=== PATIENT | male | born 1975 | race Caucasian/White ===

== ENCOUNTER 2017-01-17 09:31 | Emergency (ER) | payer BC ==
[2017-01-17] MEDS ORDERED: Dexamethasone IV* 4 MG/ML 5 ML VIAL (20 MG) IVPB ONE (10:28)
[2017-01-17] MEDS ORDERED: Ketorolac INJ* 30 MG/ML 1 ML VIAL IV PUSH ONE (10:28)
[2017-01-17] MEDS ORDERED: Orphenadrine Citrate IV* 30 MG/ML 2 ML VIAL IV ONE (10:28)
[2017-01-17 12:33] VITALS: BP 134/80
--- NOTE | 2017-01-17 18:57 | ED ---
Edinson Tejada Rebecca, scribed for Gomez García MD on 01/17/17 at 1030 . Lower Extremity - HPI Summary HPI Summary: Pt is a 41 y/o M who presents to ED c/o R lumbar back pain. Sx began approximately 1.5 weeks ago after he was sitting on the floor and tried standing up. Pain has been constant since onset. When pain began initially, it radiated down the entire RLE, worse in the R hip. Additionally states that at onset of pain, his RLE was numb. Currently, numbness is resolved and his only complaint if the R lumbar back pain. Sx aggravated by massage, alleviated by nothing. Denies N/V, incontinence. PMHx sciatica back pain with 2 surgeries. Was evaluated by Dr. Mccurdy 3 days ago who suspects a bulging or slipped disc and scheduled an MRI for tomorrow. - History of Current Complaint Chief Complaint: EDBackInjuryPain Stated Complaint: BACK PAIN Time Seen by Provider: 01/17/17 10:18 Hx Obtained From: Patient Onset of Pain: Prior to Arrival Onset/Duration: Weeks - 1.5 weeks Severity Initially: Severe Severity Currently: Mild Pain Intensity: 2 Pain Scale Used: 0-10 Numeric Location: Radiates To - R lumbar back with radiation down the RLE Associated Signs And Symptoms: Positive: Other - RLE numbness - resolved Aggravating Factor(s): Other - Massage Alleviating Factor(s): Nothing - Allergies/Home Medications Allergies/Adverse Reactions: Allergies Allergy/AdvReac Type Severity Reaction Status Date / Time No Known Allergies Allergy Verified 01/16/17 11:39 PMH/Surg Hx/FS Hx/Imm Hx Endocrine/Hematology History: Denies: Hx Diabetes, Hx Thyroid Disease Cardiovascular History: Reports: Hx Hypertension Denies: Hx Pacemaker/ICD Respiratory History: Denies: Hx Asthma, Hx Chronic Obstructive Pulmonary Disease (COPD) GI History: Denies: Hx Ulcer History: Denies: Hx Renal Disease Musculoskeletal History: Reports: Hx Back Problems - Sciatica Sensory History: Denies: Hx Hearing Aid Psychiatric History: Denies: Hx Panic Disorder - Surgical History Surgery Procedure, Year, and Place: lumbar spine L5-S1 2009 AND 2013, foot- Rt( TENDON TEAR FROM STEPPING ON GLASS) 2005,appy 1988 Infectious Disease History: No Infectious Disease History: Denies: Hx Clostridium Difficile, Hx Hepatitis, Hx Human Immunodeficiency Virus (HIV), Hx of Known/Suspected MRSA, Hx Shingles, Hx Tuberculosis, Traveled Outside the [place] in Last 30 Days - Family History Known Family History: Positive: Hypertension - Social History Alcohol Use: Occasionally Substance Use Type: Reports: None Smoking Status (MU): Never Smoked Tobacco Review of Systems Negative: Vomiting, Nausea Negative: incontinence Positive: Arthralgia - R lumbar back pain with radiaiton down the RLE Positive: Numbness - RLE numbness - resolved All Other Systems Reviewed And Are Negative: Yes Physical Exam - Summary Physical Exam Summary: General: Patient is a well developed and nourished male without any distress that is laying comfortably in the stretcher. Skin: [place], warm, dry HEAD AND FACE: No signs of trauma. EYES: PERRLA, EOMI x 2. EARS: Hearing grossly intact. MOUTH: Oropharynx within normal limits. NECK: Supple, trachea is midline, no adenopathy, no JVD. CHEST: Symmetric, no tenderness at palpation LUNGS: CTA bilaterally, no rales, rhonchi or wheezing CVS: RRR, no murmur, rub, or gallop ABDOMEN: soft and Nontender without masses, no guarding or rebound. Bowel sounds are active. No Hepato-splenomegaly. No signs of inguinal hernias. BACK: Patient walked into the ED room with symmetric ambulation, No signs of limping, antalgic, able to bear weight. No signs of trauma, no soft tissue or muscle tenderness, positive spasm in the Paraspinal muscles of the lumbar spine. No masses palpated. Point tenderness at the vertebral spine, No CVAT, no flank ecchymosis . No sacroiliac notch tenderness, No saddle anesthesia ROM: flexion/ extension/ lateral bending and rotation, note if limited due to pain Straight Leg Raise: Negative Patellar reflexes: brisk, symmetric Muscle strength lower extremities. Dorsiflexion/ plantar flexion of ankles normal. Lower extremities: Femoral, popliteal, posterior tibial, and pedal pulses with in normal, Rectal: Patient refused the exam. Triage Information Reviewed: Yes Vital Signs On Initial Exam: Initial Vitals Temp Pulse Resp BP Pulse Ox 98.0 F 57 16 145/83 96 01/17/17 09:32 01/17/17 09:32 01/17/17 09:32 01/17/17 09:32 01/17/17 09:32 Vital Signs Reviewed: Yes Diagnostics - Vital Signs Vital Signs Temp Pulse Resp BP Pulse Ox 01/17/17 09:32 98.0 F 57 16 145/83 96 - Laboratory Lab Statement: Any lab studies that have been ordered have been reviewed, and results considered in the medical decision making process. Re-Evaluation - Re-Evaluation First Eval Re-Evaluation Time: 12:20 Change: Improved Comment: Offered pt a rectal examination which he declined. Pt is feeling significantly improved. Lower Extremity Course/Dx - Course Assessment/Plan: Pt is a 41 y/o M who presents to ED c/o R lumbar back pain. Sx began approximately 1.5 weeks ago after he was sitting on the floor and tried standing up. Pain has been constant since onset. When pain began initially, it radiated down the entire RLE, worse in the R hip. Additionally states that at onset of pain, his RLE was numb. Currently, numbness is resolved and his only complaint if the R lumbar back pain. Sx aggravated by massage, alleviated by nothing. Denies N/V, incontinence. PMHx sciatica back pain with 2 surgeries. Was evaluated by Dr. Mccurdy 3 days ago who suspects a bulging or slipped disc and scheduled an MRI for tomorrow. In the ED course, the pt was given Decadron , Toradol and Norflex and his sx significantly improved. This pt is scheduled to have an MRI of the L spine, ordered by Dr. Mccurdy. I attempted to contact Dr. Mccurdy, but he is not available. The pts pain decreased significantly. The pt is able to ambulate on his own, he does not have any urinary or fecal dysfunction and the pain is only 2/10. The pt does not have a drop foot or any neurological dysfunction, therefore the pt prefers to be D/C to home and he will be D/C to home to f/u with Dr. Mccurdy tomorrow. Pt was instructed to return to ED if he develops any weakness, numbness, increase in pain or urinary or fecal dysfunction. He understands and agrees. Pt is hemodynamically stable and A&Ox3. I discussed all the findings and test results with the patient. Patient was instructed to return to the emergency room immediately if any of the symptoms return or worsens. Plan of care was discussed with the patient and understands and agrees. All questions were answered at patient satisfaction. There were no further complaints or concerns. - Diagnoses Differential Diagnosis/HQI/PQRI: Positive: Bursitis, Contusion, Dislocation, Fracture (Closed), Sciatica, Sprain, Strain Provider Diagnoses: Back pain Discharge - Discharge Plan Condition: Stable Disposition: HOME Prescriptions: Ibuprofen TAB* [Motrin TAB* 600 MG] 600 mg PO Q8H PRN #30 tab PRN Reason: Pain Methocarbamol [Robaxin-750 MG TAB] 750 mg PO TID #9 tab Patient Education Materials: Back Pain (ED), Lower Back Exercises (ED) Referrals: Yoli Camilo MD [Primary Care Provider] - 3 Days The documentation as recorded by the Edinson barrera Rebecca accurately reflects the service I personally performed and the decisions made by Ricky de la torre Walter, MD.
== END 2017-01-17 12:33 | disposition home or self-care (01) ==
LOC: ED 09:31
DX: M54.5 Low back pain (principal)
CPT/HCPCS: 96374; 96375; 99282; J1100; J1885; J2360

== ENCOUNTER 2017-01-31 06:10 | Day surgery (SDC) | payer BC ==
[~2017-01-31 06:10] MED LIST: Buffered Lidocaine 0.9% SYRIN* 5 ML/SYR SYRINGE INTRADERM ONE; Dexamethasone IV* 4 MG/ML 1 ML (4 MG) IV SLOW PU ONE; Famotidine IV* 10 MG/ML 2 ML (20 mg) IV ONE
[2017-01-31] MEDS ORDERED: Famotidine IV* 10 MG/ML 2 ML (20 mg) ONE (06:12)
[2017-01-31] MEDS ORDERED: Dexamethasone IV* 4 MG/ML 1 ML (4 MG) ONE (06:13)
[2017-01-31] MEDS ORDERED: Buffered Lidocaine 0.9% SYRIN* 5 ML/SYR SYRINGE ONE (06:13)
[2017-01-31] MEDS ORDERED: ceFAZolin 2 GM PREMIX (*) 50 ML IVPB ONE (06:13)
[2017-01-31] MEDS ORDERED: fentaNYL* 50 MCG/ML 5 ML VIAL (250 MCG VIAL) ONE (07:20)
[2017-01-31] MEDS ORDERED: Thrombin 5,000 UNITS* 1 APPLIC KIT - topical use - TOPICAL ONE (07:20)
[2017-01-31] MEDS ORDERED: Bacitracin IV* 50,000 UNITS INJ ONE (07:20)
[2017-01-31] MEDS ORDERED: Atracurium* 10 MG/ML 10 ML VIAL ONE (07:20)
[2017-01-31] MEDS ORDERED: Lidocaine 2% PF * 5 ML VIAL ONE (07:20)
[2017-01-31] MEDS ORDERED: Ondansetron INJ* 2 MG/ML VIAL ONE (07:20)
[2017-01-31] MEDS ORDERED: Propofol* 10 MG/ML 20 ML BTL IV PUSH ONE (07:20)
[2017-01-31] MEDS ORDERED: Midazolam* 1 MG/ML 5 ML VIAL (5 MG) ONE (07:20)
[2017-01-31] MEDS ORDERED: Lidocaine 1% MPF wEPI 200,000* 30 ML SDV ONE (07:22)
[2017-01-31] MEDS ORDERED: DiMENhydriNATE IV* 50 MG/ML VIAL IV PUSH PRN (08:12)
[2017-01-31] MEDS ORDERED: oxyCODONE/Acetamin 5/325 MG* TAB PO PRN (08:12)
[2017-01-31] MEDS ORDERED: Ondansetron INJ* 2 MG/ML VIAL IV PRN (08:12)
[2017-01-31] MEDS ORDERED: HYDROmorphone INJ* 1 MG/ML CARPUJECT SYRINGE IV PRN (08:12)
[2017-01-31] MEDS ORDERED: fentaNYL* 50 MCG/ML 2 ML VIAL (100 MCG VIAL) IV PRN (08:12)
[2017-01-31] MEDS ORDERED: oxyCODONE/Acetamin 5/325 MG* TAB ONE (10:14)
[2017-01-31 11:06] VITALS: BP 116/71
--- NOTE | 2017-02-01 09:39 | OP ---
DATE OF OPERATION: 01/31/17 - [facility] DATE OF ; 77 SURGEON: Rolando Mccurdy MD ANESTHESIOLOGIST: David Burr MD ANESTHESIA: General PRE-OP DIAGNOSIS: Recurrent herniated nucleus pulposus L5-S1 on the right. POST-OP DIAGNOSIS: Recurrent herniated nucleus pulposus L5-S1 on the right. OPERATIVE PROCEDURE: Re-do lumbar discectomy L5-S1 on the right with microdissection. DESCRIPTION OF PROCEDURE: After satisfactory general anesthesia was obtained, the patient was placed on the operating table in the prone position with the chest supported on the Noah frame and the back slightly flexed. The lumbar region was then clipped, prepped, and draped in a sterile manner for lumbar laminectomy, and a skin incision outlined from L5 to the sacrum. This incision was along a previously- made scar, and was infiltrated with 1% Xylocaine with epinephrine after which it was turned down sharply to the level of the fascia and scar tissue. The fascia was divided along the spinous processes of L5 and S1, and the scar tissue removed from these posterior elements utilizing the monopolar cautery and curettes. The L5-S1 was identified by feeling the first movable interspace. The scar tissue was dissected free from the periphery of the previous laminectomy utilizing curette. The laminectomy was then extended both superiorly, laterally and inferiorly until normal tissues were encountered. At this point in the procedure, the operating microscope was brought into the field, and the remainder of the procedure was done under microscopic visualization. By utilizing microdissection, densely adherent scar tissue was dissected free and there were noted to be multiple fragments of extruded disc material projecting superior to the L5-S1 interspace. These fragments were removed without difficulty. The disc space itself was then entered and cleared of any loose disc material using pituitary forceps and curettes. The disc space was noted to be somewhat collapsed. After assuring adequate hemostasis, the wound was thoroughly irrigated, after which a piece of Gelfoam was placed over the laminectomy defect. The fascia was then reapproximated with 0 Vicryl suture, the subcutaneous tissue was closed with 3- 0 Vicryl, and the skin closed with skin clips. The estimated blood loss was less than 50 mL. Final sponge, padding, and needle counts were correct. The patient was taken to the recovery room, extubated, and in stable condition. [id number]/[facility] #: [id number] [facility]
--- NOTE | 2017-02-07 02:23 | DS ---
DISCHARGE SUMMARY: DATE OF ADMISSION: 01/31/17 DATE OF DISCHARGE: 01/31/17 ATTENDING PHYSICIAN: Dr. Mccurdy * (dictated by ANNIE Chung) DISCHARGE DIAGNOSES: 1. Recurrent herniated nucleus pulposus, L5-S1 on the right. 2. Hypertension. SPECIAL PROCEDURES: Redo lumbar diskectomy at L5-S1 on the right. HOSPITAL COURSE: A 41-year-old male with a history of lumbar diskectomy at L5- S1 on the right for herniated nucleus pulposus on 06/02/14. On 01/14/17, the patient presented to the office with a recurrent right-sided lumbar radiculopathy. Updated MRI study showed a recurrent herniated disk at L5-S1 on the right. The patient's symptoms were severe, and he presented with weakness. He was admitted after failure to improve with medication treatment. He was admitted for elective surgical treatment. On the day of admission, he was taken to surgery where under general anesthesia a redo lumbar diskectomy at L5- S1 on the right operation was carried out. Postoperatively, he is feeling very well. The right lower extremity pain was improved. He is ambulating independently. He was eating, drinking, and voiding without difficulty. Pain was well controlled with oral pain medication. He was discharged home from the postanesthesia care unit to the care of his family. DISCHARGE INSTRUCTIONS: Wound care and activity level were discussed with the patient and information was provided. FOLLOWUP: He will be seen in the office in 7 to 10 days for followup and staple removal. DISCHARGE MEDICATIONS: None. ANNIE CHUNG [id number]/[facility] #: [id number] [employer]
== END 2017-01-31 11:07 | disposition home or self-care (01) ==
LOC: OR 06:10
PROVIDERS: ATTEND Neurological Surgery
PROC: 01NB0ZZ Release Lumbar Nerve, Open Approach (ICD-10-PCS; 2017-01-31)
PROC: 0SB20ZZ Excision of Lumbar Vertebral Disc, Open Approach (ICD-10-PCS; principal; 2017-01-31 07:45)
DX: M51.27 Other intervertebral disc displacement, lumbosacral region (principal)
CPT/HCPCS: 88304; A9270-GY; J0690; J1100; J2001; J2250; J2405; J2704; J3010